=== PATIENT | male | born 1940 | race Caucasian/White ===

== ENCOUNTER 2020-05-09 12:05 | Emergency (ER) | payer MEDICARE, OTHER ==
[2020-05-09] MEDS ORDERED: Adacel (T-DAP) 0.5 ML SYRINGE ONE (12:38)
[2020-05-09] MEDS ORDERED: Lidocaine 1% w/Epinephrine 1:100K 20 ML VIAL ONE (12:38)
[2020-05-09] MEDS ORDERED: Triple Antibiotic Oint 1 GM Packet ONE (12:58)
== END 2020-05-09 13:13 | disposition home or self-care (01) ==
LOC: MADERS 12:05
DX: S61.210A Laceration without foreign body of right index finger without damage to nail, initial encounter (principal); K21.9 Gastro-esophageal reflux disease without esophagitis; C34.91 Malignant neoplasm of unspecified part of right bronchus or lung; F17.210 Nicotine dependence, cigarettes, uncomplicated; Z23 Encounter for immunization; Z79.899 Other long term (current) drug therapy; W26.8XXA Contact with other sharp object(s), not elsewhere classified, initial encounter
CPT/HCPCS: 12001; 90471; 90715